=== PATIENT | female | born 1945 | race Caucasian/White ===

== ENCOUNTER → 2023-08-12 03:22 | Outpatient (CLI) | payer MEDICARE, SELFPAY ==
--- NOTE | 2023-08-12 10:57 | DI.US_ITS ---
APPROVED REPORT EXAM: Comprehensive 2D, Doppler, and color-flow Echocardiogram Patient Location: Out-Patient Industrial Training Specialist: Nona Acosta RDCS (AE) Indications: Pre operative, Worsening edema, Known diastolic dyspnea Other Information Study Quality: Adequate Conclusion Left ventricular chamber size is small, with mild concentric left hypertrophy. EF biplane is 57% but visually appears 60 to 65%. There are no segmental wall motion abnormalities. Diastolic function i s normal for age Normal right ventricular size and function Both atria are normal in size Aortic valve is sclerotic with trace regurgitation Estimated right ventricular systolic pressure is 26 mmHg Ascending aorta measures 3.94 cm Wall motion Left Ventricle The left ventricle is small The left ventricular systolic function is normal. The left ventricular ej ection fraction is within the normal range. Mild concentric left ventricular hypertrophy. There is no rmal LV segmental wall motion. Left ventricular filling pattern is normal for age. There is no ventri cular septal defect visualized. LVEF is 60-65% Right Ventricle The right ventricle is normal size. The right ventricular systolic function is normal. Atria The left atrium size is normal. The right atrium size is normal. The interatrial septum is intact wit h no evidence for an atrial septal defect. Aortic Valve Aortic valve is calcified. Aortic valve is trileaflet. No hemodynamically significant valvular aortic stenosis. Trace aortic regurgitation. Mitral Valve Mild mitral annular calcification. No evidence of mitral valve stenosis. Trace mitral regurgitation. Tricuspid Valve The tricuspid valve is normal in structure. There is no tricuspid valve stenosis. Trace to mild tricu spid regurgitation. The RVSP is 26.2 mmHg. Pulmonic Valve The pulmonary valve is normal in structure. There is no pulmonic valvular stenosis. Trace pulmonic re gurgitation. Great Vessels The aortic root is normal in size. The ascending aorta is mildly dilated. Aortic arch is normal in ca liber. IVC is normal in size and collapses >50% with inspiration. Pericardium There is no pericardial effusion. 2D Dimensions IVSD d PLAX 1.00 cm F: 0.6-1.0 Ao Root d 3.41 cm F: 2.7 - 3.3 LVPW d PLAX 1.00 cm F: 0.6 - 1.0 Ao Asc Diam d 3.94 cm F: 2.3 - 3.1 LVID d PLAX 4.01 cm F: 3.8 - 5.2 LVDs 2.83 cm F: 2.2 - 3.5 LV EF Teichholz 56.8 % FS 29.37 % LV EDV (Teich) 70.5 mL LV ESV (Teich) 30.4 mL M-Mode TAPSE 2.72 cm (M/F) >1.7 Auto EF LV EDV A4C 121.9 mL LV EDV A2C 133.8 mL LV EDV BP 127.7 mL LV ESV A4C 54.2 mL LV ESV A2C 58.8 mL LV ESV BP 55.8 mL LVEF(%) A4C 55.6 % LVEF(%) A2C 56.0 % LVEF(%) BP 56.3 % LV SV A4C 67.7 ml LV SV A2C 75.0 ml LV SV BP 71.8 ml LV CO A4C 4.4 L/min LV CO A2C 5.1 L/min LV CO BP 4.7 L/min HR A4C 65.32 BPM HR A2C 67.54 BPM LV EDV Index (BP) LV Strain Long Pk Overal Avg (s) 18.05 LA Volume LA Length A4C 4.6 cm LA Length A2C 5.6 cm LA Area A4C s 15.68 cm2 LA Area A2C s 19.69 cm2 LA Vol A4C A-L 45.25 mL LA Vol A2C A-L 58.48 mL LA Vol Biplane A-L 56.8 mL LA Vol/BSA A4C A-L LA Vol/BSA A2C A-L LA Vol/BSA BP A-L 26.9 mL/m2 LA Vol A4C MOD 43.1 mL LA Vol A2C MOD 54.2 mL LA Vol BP MOD 53.3 mL RA Volume RA Area A4C 14.6 cm2 RA ESV A4C (A-L) 35.0mL RA Vol/BSA A4C A-L RA Length A4C 5.2 cm RA ESV A4C (MOD) 32.2mL LV Diastology MV E' medial 0.082 (>0.07 m/s) MV E Vmax 0.64 (0.4-1.3 m/s) MV E/E' MED 7.84 (<14) MV A Vmax 1.00 (0.4-1.3 m/s) MV E' lateral 0.077 (>0.1 m/s) E/A Ratio 0.6 MV E/E' LAT 8.38 (<14) MV E' Average 0.079 m/s MV E/E'(average) 8.10 Aortic Valve AoV Vmax 2.31 m/s LVOT Diam s 1.95 cm AoV Peak Grad 21.4 mmHg AoV VTI 0.478 m AoV Mean Lenny. 1.61 m/s AoV Mean Grad 11.7 mmHg Mitral Valve MV DT 431 (160-240 msec) MV Vmax TIPS 1.12 m/s MV Mean Grad 2.1 (<2mmHg) MV VTI 0.358 m Pulmonary Valve PV Vmax 1.20 (0.5-1.5 m/s) RVOT Vmax 0.72 m/s PV Peak Grad 5.8 mmHg RVOT Peak Gr. 2.1 mmHg PV Mean Lenny 0.72 m/s RVOT VTI 0.154 m PV Mean Grad 2.4 mmHg RVOT Mean Gr. 1.1 mmHg Tricuspid Valve RA Pressure 3.00 mmHg TR Vmax 2.41 m/s TV S' 0.19 m/s TR Peak Grad 23.1 mmHg RVSP (TR) 26.2 mmHg
== END ==
PROVIDERS: PCP Family Medicine; Visit Provider Family Medicine
DX: Z01.818 Encounter for other preprocedural examination (principal)
CPT/HCPCS: 93306